=== PATIENT | male | born 1955 | race Caucasian/White ===

== ENCOUNTER 2020-01-12 08:27 | Emergency (ER) | payer BC ==
--- NOTE | 2020-01-12 09:08 | EDM.PDOC ---
ED HPI GENERAL MEDICAL PROBLEM - General Chief Complaint: General Stated Complaint: PAINFUL CYST Time Seen by Provider: 01/12/20 08:50 Source of Information: Reports: Patient History Limitations: Reports: No Limitations - History of Present Illness INITIAL COMMENTS - FREE TEXT/NARRATIVE: 64-year-old male who has had a small cyst in his left groin that is slowly grown over the past several months, but over the last 2 days grew rapidly and became painful and then drained. He now has inflammation and redness in the groin and it is painful but nothing is actively draining and the swelling is much less. He has an appointment with his primary in 2 days but that thought he should get it looked at. He is not diabetic. No fevers or chills. Onset: Gradual (With significant worsening over the past 2 days) Location: Reports: Lower Extremity, Left Groin Pain Score (Numeric/FACES): 1 - Related Data Allergies Allergy/AdvReac Type Severity Reaction Status Date / Time No Known Allergies Allergy Verified 01/12/20 08:41 Home Meds: Home Meds Pravastatin Sodium 20 mg PO DAILY 01/12/20 [History] Triamterene/Hydrochlorothiazid [Triamterene-HCTZ 37.5-25 MG] 1 each PO DAILY 01/12/20 [History] Past Medical History Cardiovascular History: Reports: High Cholesterol, Hypertension Psychiatric History: Reports: Addiction - Past Surgical History GI Surgical History: Reports: Hernia Repair/Other Social & Family History - Tobacco Use Smoking Status *Q: Never Smoker - Caffeine Use Caffeine Use: Reports: None - Recreational Drug Use Recreational Drug Use: No ED ROS GENERAL - Review of Systems Review Of Systems: See Below Constitutional: Reports: Malaise. Denies: Fever, Chills HEENT: Reports: No Symptoms Respiratory: Denies: Shortness of Breath Cardiovascular: Denies: Chest Pain GI/Abdominal: Denies: Abdominal Pain, Nausea, Vomiting : Reports: Other (Left groin pain, redness) Skin: Reports: Other (See HPI) ED EXAM, GENERAL - Physical Exam Exam: See Below Exam Limited By: No Limitations General Appearance: Alert, No Apparent Distress (Looks uncomfortable not distressed) Head: Atraumatic Respiratory/Chest: No Respiratory Distress Cardiovascular: Regular Rate, Rhythm GI/Abdominal: Soft, Other (Some tenderness in the extreme left lower abdomen into the left groin with erythema, no swelling or fluctuance at this time. Nothing actively draining.) Neurological: Alert, Oriented Course - Vital Signs Last Recorded V/S: Last Vital Signs Temp 97.2 F 01/12/20 08:44 Pulse 83 01/12/20 08:44 Resp 18 01/12/20 08:44 BP 199/94 H 01/12/20 08:44 Pulse Ox 98 01/12/20 08:44 - Re-Assessments/Exams Free Text/Narrative Re-Assessment/Exam: 01/12/20 09:06 This patient has likely had a sebaceous cyst that is become infected and drained. Nothing at this time needs further surgical intervention but a recheck on Tuesday is still recommended. He was started on 300 mg of clindamycin 3 times a day, encouraged to use warm compresses and dressings to the area and recheck on Tuesday as planned. Departure - Departure Time of Disposition: 09:45 Disposition: Home, Self-Care 01 Clinical Impression: Sebaceous cyst - Discharge Information Instructions: Epidermal Cyst, [id number] Referrals: Steve Hoffmann MD [Primary Care Provider] - Forms: ED Department Discharge Care Plan Goals: Warm moist compresses to the area will help the antibiotic fight infection, also aid in healing or drainage that is needed. Keep the wound covered when active, and recheck on Tuesday as scheduled. Take antibiotic as prescribed. Continue your regular medications. Return sooner if worsening such as high fever, vomiting medication or increased pain. Sepsis Event Note (ED) - Evaluation Sepsis Screening Result: No Definite Risk - Focused Exam Vital Signs: Vital Signs Temp Pulse Resp BP Pulse Ox 01/12/20 08:44 97.2 F 83 18 199/94 H 98
== END 2020-01-12 09:45 | disposition home or self-care (01) ==
LOC: JP.ED 08:27
DX: L72.3 Sebaceous cyst (principal); E78.00 Pure hypercholesterolemia, unspecified; I10 Essential (primary) hypertension; Z79.899 Other long term (current) drug therapy
CPT/HCPCS: 99282

== ENCOUNTER 2023-02-08 15:08 | Emergency (ER) | payer BC, MEDICARE ==
[2023-02-08] MEDS ORDERED: Naloxone 0.4 MG/ML SDV IVPUSH PRN (16:28)
[2023-02-08] MEDS ORDERED: fentaNYL 100 MCG/2 ML SDV IVPUSH ONE (16:28)
[2023-02-08] MEDS ORDERED: Ondansetron 4 MG/2 ML SDV IVPUSH ONE (16:28)
[2023-02-08 16:39] LABS: BASOPHILS ABSOLUTE AUTO 0.04 K/uL (0.00-0.10); BASOPHILS PERCENT AUTO 0.3 % (0.1-1.3); EOSINOPHILS ABSOLUTE AUTO 0.06 K/uL (0.00-0.40); EOSINOPHILS PERCENT AUTO 0.5 % (0.0-5.4); HEMATOCRIT 48.9 % (38.4-49.7); HEMOGLOBIN 17.3 g/dL (12.9-16.9); IMMATURE GRAN ABSOLUTE AUTO 0.07 K/uL (0.00-0.23); IMMATURE GRAN PERCENT AUTO 0.6 % (0.0-0.7); LYMPHOCYTES ABSOLUTE AUTO 0.93 K/uL (0.8-3.3); LYMPHOCYTES PERCENT AUTO 7.8 % (11.4-47.7); MEAN CORPUSCULAR HEMOGLOBIN 32.9 pg (31.6-35.5); MEAN CORPUSCULAR HGB CONC 35.4 g/dL (31.6-35.5); MONOCYTES ABSOLUTE AUTO 0.63 K/uL (0.20-0.90); MONOCYTES PERCENT AUTO 5.3 % (3.3-12.6); NEUTROPHILS ABSOLUTE AUTO 10.23 K/uL (1.0-7.6); NEUTROPHILS PERCENT AUTO 85.5 % (40.0-78.1); PLATELET COUNT,PLT 225 K/uL (130-375); RED BLOOD CELL COUNT 5.26 M/uL (4.14-5.76)
[2023-02-08 16:43] LABS: CREATININE 1.1 mg/dL (0.7-1.3); EST CRCL DRUG DOSING (CG) 61.76 mL/min; ESTIMATED GFR 74 mL/min (>60)
[2023-02-08 17:00] LABS: INR 1.1; PROTHROMBIN TIME 10.7 sec (9.2-10.6)
[2023-02-08 17:09] LABS: A/G RATIO 1.1 (1.2-2.2); ALANINE AMINOTRANSFERASE,ALT 93 U/L (12-78); ALBUMIN 4.1 g/dL (3.4-5.0); ALKALINE PHOSPHATASE 83 U/L (46-116); ASPARTATE AMNIOTRANSFERASE,AST 58 U/L (15-37); BILIRUBIN TOTAL 0.7 mg/dL (0.2-1.0); BLOOD UREA NITROGEN,BUN 16 mg/dL (7-18); CALCIUM 9.4 mg/dL (8.5-10.1); CARBON DIOXIDE,CO2 32 mmol/L (21-32); CHLORIDE,CL 100 mmol/L (100-108); GLUCOSE RANDOM 174 mg/dL (74-106); POTASSIUM,K 3.7 mmol/L (3.6-5.2); PROTEIN TOTAL,TP 7.7 g/dL (6.4-8.2); SODIUM,NA 141 mmol/L (140-148)
[2023-02-08] MEDS ORDERED: Iopamidol 755 Mg/ML 100 ML Bottle IV SCH (17:45)
[2023-02-08] MEDS ORDERED: Sodium Chloride 0.9% 100 ML IV SCH (17:45)
[2023-02-08] MEDS ORDERED: niCARdipine HCl 25 MG in Sodium Chloride 0.9% 240 ML IV SCH (18:00)
== END 2023-02-08 18:10 ==
LOC: JP.ED 15:08
DX: I60.9 Nontraumatic subarachnoid hemorrhage, unspecified (principal); E78.00 Pure hypercholesterolemia, unspecified; I10 Essential (primary) hypertension; E03.9 Hypothyroidism, unspecified; F17.210 Nicotine dependence, cigarettes, uncomplicated; Z88.8 Allergy status to other drugs, medicaments and biological substances; Z79.899 Other long term (current) drug therapy
CPT/HCPCS: 36415; 70450; 70496; 70498; 80053; 85025; 85610; 96365; 96375; 99285; J2405; J3010; J3490; J7050; Q9967

== ENCOUNTER 2024-04-08 23:52 | Emergency (ER) | payer MEDICARE | END 2024-04-09 01:49 | disposition home or self-care (01) | LOC: JP.ED 23:52 | DX: R51.9 Headache, unspecified (principal); E78.00 Pure hypercholesterolemia, unspecified; I10 Essential (primary) hypertension; Z86.73 Personal history of transient ischemic attack (TIA), and cerebral infarction without residual deficits; E03.9 Hypothyroidism, unspecified; Z79.899 Other long term (current) drug therapy; Z88.6 Allergy status to analgesic agent | CPT/HCPCS: 70450; 99283; 99284 ==